=== PATIENT | male | born 1985 | race Caucasian/White ===

== ENCOUNTER 2019-03-12 22:56 | Emergency (ER) | payer MEDICAID ==
--- NOTE | 2019-03-12 23:30 | ED Physician Chart ---
ED Chief Complaint/HPI - Patient Information Date Seen:: 03/12/19 Time Seen:: 23:24 Chief Complaint:: Foreign body History of Present Illness:: 34 yo male had a burger 30 minutes ago. When he was chewing the burger, he felt chewing a plastic and swallowed the food. He then felt something stuck in the throat. Pt went home and tried to cough out. However, the discomfort and feeling of a "foreign body" remained. Allergies:: Allergies Allergy/AdvReac Type Severity Reaction Status Date / Time No Known Allergies Allergy Verified 03/12/19 23:11 Vitals:: Vital Signs - 8 hr 03/12/19 23:00 Temp 98.9 F HR 89 RR 18 BP 160/120 O2 Sat % 100 ED Review of Systems - Review of Systems General/Constitutional: Fever Skin: Rash Head: No headache Eyes: No pain ENT: No earache, Sore throat Neck: No neck pain Cardio Vascular: No chest pain Pulmonary: No SOB GI: No nausea, No vomiting, No pain Musculoskeletal: No bone or joint pain Neurological: No focal symptoms ED Past Medical History - Past Medical History Past Medical History: HTN Social History: Non Smoker, No Alcohol, No Drug Use Surgical History: None Family Medical History - Family Member Mother History Unknown: Yes ED Physical Exam - Physical Examination General/Constitutional: Awake, Alert Head: Atraumatic Eyes: PERRL Skin: No skin lesions ENMT: Nasal exam nl, Oropharynx nl, Tonsils nl Neck: No nuchal rigidity Respiratory: Clear to Auscultation, No Wheeze/Rhonchi/Rales Cardio Vascular: RRR, No murmur, gallop, rubs, NL S1 S2 GI: No tenderness/rebounding/guarding Extremities: No tenderness or effusion, normal strength in all extremities Neuro/Psych: No focal deficits ED Labs/Radiology/EKG Results - Radiology Results Results: Neck soft tissue X ray: no foreign body ED Assessment - Assessment General Assessment: Globus hystericus/syndrome Assessment/Comments:: Reassurance patient of negative finding ED Septic Shock - . Is Septic Shock (SBP<90, OR Lactate>4 mmol\\L) present?: No - <6hrs of presentation: Vital Signs: Vital Signs - 8 hr 03/12/19 23:00 Temp 98.9 F HR 89 RR 18 BP 160/120 O2 Sat % 100 ED Reassessment (Disposition) - Reassessment Reassessment Condition:: Improved - Aftercare/Follow up Instructions Notes:: F/u ENT as needed - Patient Disposition Discharge/Transfer:: Home
--- NOTE | 2019-03-13 09:24 | Diagnostic Imaging Report ---
Soft tissues of the neck (2 views) HISTORY: Pain No abnormality seen in the region of the valleculae, epiglottis, or pyriform sinuses. The cervical trachea appears normal. The prevertebral soft tissues appear normal. Mild degenerative changes seen within the cervical spine. IMPRESSION: 1. Normal appearance of the airway 2. Mild degenerative changes within the cervical spine
== END 2019-03-13 00:40 | disposition home or self-care (01) ==
LOC: ER 22:56
DX: R09.89 Other specified symptoms and signs involving the circulatory and respiratory systems (principal); I10 Essential (primary) hypertension
CPT/HCPCS: 70360-TC; Z7502